=== PATIENT | male | born 1955 | race Caucasian/White ===

== ENCOUNTER → 2025-02-22 10:16 | Outpatient (REF) | payer OTHER, SELFPAY | LOC: HWRCS 10:16 | PROVIDERS: ATTENDING PHYSICIAN Internal Medicine; FAMILY PHYSICIAN Family Medicine | DX: I48.0 Paroxysmal atrial fibrillation (principal); Z95.2 Presence of prosthetic heart valve; I10 Essential (primary) hypertension | CPT/HCPCS: 93306 ==